=== PATIENT | male | born 1960 | race African-American/Black ===

== ENCOUNTER 2020-08-11 13:41 | Inpatient (IN) ==
[2020-08-11 14:19] LABS: Basophils # 0.1 10*3/uL (0.0-0.2); Basophils % 0.4 % (0.0-0.8); Eosinophils % 0.2 % (0.00-10.9); Hematocrit 34.6 VOL% (42.0-52.0); Hemoglobin 11.8 GM/DL (14.0-18.0); Immature Granulocytes % 9.7 %; Immature Granulocytes Absolute 1.11 #; Lymphocytes # 0.9 10*3/uL (1.4-4.0); Lymphocytes % 7.6 % (21.2-54.2); Mean Corpuscular HGB Conc 34.1 GM/DL (32-36); Mean Corpuscular Volume 93.5 FL (87-102); Mean Platelet Volume 12.5 FL (9.6-12.0); Monocytes % 24.3 % (1.7-12.7); Neutrophils % 57.8 % (38.7-73.9); Platelet Count 240 T/CUMM (130-400); Red Cell Distribution Width 13.7 % (9.3-17.3); White Blood Count 11.5 T/CUMM (4-12)
[2020-08-11] MEDS ORDERED: SODIUM CHLORIDE 0.9% 1,000 ML IV STA (14:23)
[2020-08-11 14:31] LABS: INR 1.1; PT Patient Result 12.4 SECS (10.5-12.0); Partial Thromboplastin Time 28.1 SECS (23.9-33.8)
[2020-08-11 14:39] LABS: Alanine Aminotransferase 67 U/L (16-61); Alkaline Phosphatase 90 U/L (45-117); Aspartate Amino Transferase 106 U/L (0-37); Blood Urea Nitrogen 19 MG/DL (7-18); Calcium 8.9 MG/DL (8.5-10.1); Carbon Dioxide 22 MMOL/L (21-32); Estimated Glom Filtration Rate 123 ML/MIN; Glucose 107 MG/DL (74-106); Osmolality,Calculated 263.7 MOS/KG (273-304); Potassium 3.3 MMOL/L (3.5-5.1); Sodium 131 MMOL/L (136-145); Total Protein 7.3 G/DL (6.4-8.2)
[2020-08-11 14:51] LABS: Lymphocytes 15 % (20-55); Reactive Lymphocytes Few; Segmented Neutrophils 65 % (50-85); Total Cells Counted 100
[2020-08-11 14:53] LABS: Anisocytosis Slight
[2020-08-11 14:54] LABS: Platelet Estimate Adequate
[2020-08-11] MEDS ORDERED: ACETAMINOPHEN 325 MG TABLET PO PRN (15:41)
[2020-08-11] MEDS ORDERED: ONDANSETRON 4 MG/2 ML VIAL IV PRN (15:41)
[2020-08-11] MEDS ORDERED: DEXTROSE 50% 25 GM/50 ML VIAL IV PRN (15:41)
[2020-08-11] MEDS ORDERED: DOCUSATE SODIUM 100 MG CAPSULE PO PRN (15:41)
[2020-08-11] MEDS ORDERED: GLUCAGON 1 MG VIAL IM PRN (15:41)
[2020-08-11] MEDS ORDERED: POTASSIUM CHLORIDE 20 MEQ TABLET PO ONE (15:48)
[2020-08-11 15:53] LABS: Bacteria,Urine Occasional /HPF (Few); Bilirubin,Urine Negative (Negative); Blood, Urine Negative (Negative); Glucose,Urine (UA) Negative (Negative); Hyaline Casts,Urine 63 /LPF (0-3); Ketones,Urine 5 mg/dL (Negative); Mucus,Urine Occasional /LPF (Occasional); Nitrite,Urine Negative (Negative); Protein,Urine 30 MG/DL; RBC,Urine 3 /HPF (0-4); Squamous Epithelial Cell,Urine Occasional /HPF (0-10); Urine Appearance CLEAR (Clear); Urine Color Amber (Yellow); Urine Specific Gravity 1.015 (1.001-1.035)
[2020-08-11 15:58] LABS: Barbiturates Screen,Urine Negative (Negative); Benzodiazepines Screen,Urine Negative (Negative); Cannabinoid Screen,Urine Negative (Negative); Opiate Screen,Urine Negative (Negative); Phencyclidine Screen,Urine Negative (Negative)
[2020-08-11] MEDS: ASPIRIN EC 325 MG TABLET PO SCH (16:48)
[2020-08-11] MEDS: ENOXAPARIN 40 MG/0.4 ML SYRINGE SUBCUT SCH (16:50)
[2020-08-11] MEDS: FOLIC ACID 1 MG TABLET PO SCH (20:21)
[2020-08-11] MEDS: chlordiazePOXIDE 10 MG CAPSULE PO SCH (20:21)
[2020-08-12 04:59] LABS: Basophils # 0.1 10*3/uL (0.0-0.2); Basophils % 0.6 % (0.0-0.8); Eosinophils % 0.4 % (0.00-10.9); Hematocrit 34.2 VOL% (42.0-52.0); Hemoglobin 11.8 GM/DL (14.0-18.0); Immature Granulocytes % 9.6 %; Immature Granulocytes Absolute 1.02 #; Lymphocytes # 0.9 10*3/uL (1.4-4.0); Lymphocytes % 8.4 % (21.2-54.2); Mean Corpuscular HGB Conc 34.5 GM/DL (32-36); Mean Corpuscular Volume 94.2 FL (87-102); Mean Platelet Volume 12.6 FL (9.6-12.0); Monocytes % 21.5 % (1.7-12.7); Neutrophils % 59.5 % (38.7-73.9); Platelet Count 240 T/CUMM (130-400); Red Blood Count 3.63 MC/CUMM (3.8-5.5); Red Cell Distribution Width 13.7 % (9.3-17.3); White Blood Count 10.6 T/CUMM (4-12)
[2020-08-12 05:33] LABS: Atypical Lymphocytes Few; Band Neutrophils 1 % (0-10); Eosinophils 1 % (0-10); Lymphocytes 6 % (20-55); Metamyelocytes 1 %; Segmented Neutrophils 71 % (50-85); Total Cells Counted 100
[2020-08-12 05:35] LABS: Hypochromasia Slight
[2020-08-12 05:36] LABS: Giant Platelets Few; Microcytosis Slight; Platelet Estimate Normal
[2020-08-12 05:38] LABS: Calcium 8.2 MG/DL (8.5-10.1); Osmolality,Calculated 268.2 MOS/KG (273-304); Potassium 3.4 MMOL/L (3.5-5.1); Risk Ratio 7.87; Thyroid Stimulating Hormone 1.71 uIU/ml (0.358-3.74); VLDL CHOLESTEROL 27.2 MG/DL
[2020-08-12] MEDS ORDERED: MAGNESIUM SULF RIDER 4 GM/100 ML PREMIX IV PRN (07:15)
[2020-08-12] MEDS ORDERED: MAGNESIUM SULF RIDER 2 GM/50 ML PREMIX IV PRN (07:15)
[2020-08-12] MEDS: THIAMINE 100 MG TABLET PO SCH (08:36)
[2020-08-12] MEDS: ASPIRIN EC 325 MG TABLET PO SCH (08:36)
[2020-08-12] MEDS: chlordiazePOXIDE 10 MG CAPSULE PO SCH ×3 (08:36→20:48)
[2020-08-12] MEDS: POTASSIUM CHLORIDE 20 MEQ TABLET PO PRN (08:36)
[2020-08-12] MEDS ORDERED: POTASSIUM CHLORIDE 20 MEQ TABLET PO ONE (09:46)
[2020-08-12] MEDS: ENOXAPARIN 40 MG/0.4 ML SYRINGE SUBCUT SCH (17:15)
[2020-08-12] MEDS: FOLIC ACID 1 MG TABLET PO SCH (20:48)
[2020-08-12] MEDS: ATORVASTATIN 40 MG TABLET PO SCH (20:48)
[2020-08-13] MEDS ORDERED: PHENYLEPHRINE DRIP 20 MG/250 ML PREMIX IV ONE (07:25)
[2020-08-13] MEDS ORDERED: NITROGLYCERIN DRIP 50 MG/250 ML BOTTLE IV ONE (07:25)
[2020-08-13] MEDS ORDERED: LIDOCAINE 1% 20 ML VIAL ONE (07:55)
[2020-08-13] MEDS ORDERED: HEPARIN 5,000 UNIT/1 ML VIAL ONE (07:55)
[2020-08-13] MEDS: ASPIRIN EC 325 MG TABLET PO SCH (07:59)
[2020-08-13] MEDS: THIAMINE 100 MG TABLET PO SCH (07:59)
[2020-08-13] MEDS: chlordiazePOXIDE 10 MG CAPSULE PO SCH ×3 (07:59→21:12)
[2020-08-13] MEDS ORDERED: MIDAZOLAM 2 MG/2 ML VIAL ONE (08:03)
[2020-08-13] MEDS ORDERED: fentaNYL 100 MCG/2 ML VIAL ONE (08:03)
[2020-08-13] MEDS ORDERED: LIDOCAINE 2% 5 ML VIAL ONE (09:36)
[2020-08-13] MEDS ORDERED: SEVOFLURANE 1 UNIT/15 MINUTE INH ONE ×4 (09:36→11:15)
[2020-08-13] MEDS ORDERED: propofoL 200 MG/20 ML VIAL IV ONE (09:36)
[2020-08-13] MEDS ORDERED: ROCURONIUM 50 MG/5 ML VIAL IV ONE ×3 (09:36→10:54)
[2020-08-13] MEDS ORDERED: HEPARIN 10,000 UNIT/10 ML VIAL ONE (10:31)
[2020-08-13] MEDS ORDERED: PROTAMINE SULFATE 50 MG/5 ML VIAL IV ONE (10:31)
[2020-08-13] MEDS ORDERED: NEOSTIGMINE 10 MG/10 ML VIAL ONE (10:36)
[2020-08-13] MEDS ORDERED: GLYCOPYRROLATE 0.4 MG/2 ML VIAL ONE (10:36)
[2020-08-13] MEDS ORDERED: GLUCAGON 1 MG VIAL IM PRN (10:43)
[2020-08-13] MEDS ORDERED: oxyCODONE/ACETAMINOPHEN 5-325 MG TABLET PO PRN ×2 (10:43)
[2020-08-13] MEDS ORDERED: NALOXONE 0.4 MG/ML VIAL IV PRN (10:43)
[2020-08-13] MEDS ORDERED: ONDANSETRON 4 MG/2 ML VIAL IV PRN (10:43)
[2020-08-13] MEDS ORDERED: DEXTROSE 50% 25 GM/50 ML VIAL IV PRN (10:43)
[2020-08-13] MEDS ORDERED: PROMETHAZINE 25 MG/1 ML VIAL IM PRN (10:43)
[2020-08-13] MEDS ORDERED: HYDROmorphone 2 MG/1 ML VIAL IV PRN (10:43)
[2020-08-13] MEDS ORDERED: NITROPRUSSIDE 100 MG in DEXTROSE 5% 250 ML IV SCH ×2 (11:00→13:30)
[2020-08-13] MEDS: INSULIN REGULAR 100 UNIT/ML SUBCUT SCH ×3 (12:51→20:46)
[2020-08-13] MEDS: amLODIPine 5 MG TABLET PO SCH (13:32)
[2020-08-13] MEDS: LACTATED RINGERS 1,000 ML IV SCH ×3 (13:41→23:20)
[2020-08-13] MEDS: PHENYLEPHRINE DRIP 40 MG/250 ML PREMIX IV SCH (13:43)
[2020-08-13] MEDS: ATORVASTATIN 40 MG TABLET PO SCH (21:12)
[2020-08-13] MEDS: FOLIC ACID 1 MG TABLET PO SCH (21:12)
[2020-08-14 04:08] LABS: Basophils % 0.3 % (0.0-0.8); Eosinophils % 0.1 % (0.00-10.9); Immature Granulocytes Absolute 0.73 #; Lymphocytes # 0.8 10*3/uL (1.4-4.0); Lymphocytes % 7.6 % (21.2-54.2); Mean Corpuscular HGB Conc 33.3 GM/DL (32-36); Mean Corpuscular Volume 95.8 FL (87-102); Mean Platelet Volume 12.3 FL (9.6-12.0); Platelet Count 254 T/CUMM (130-400); Red Blood Count 3.13 MC/CUMM (3.8-5.5); Red Cell Distribution Width 14.2 % (9.3-17.3); White Blood Count 10.4 T/CUMM (4-12)
[2020-08-14 04:20] LABS: Albumin 2.3 G/DL (3.4-5.0); Bilirubin,Total 1.4 MG/DL (0.2-1.0); Calcium 7.9 MG/DL (8.5-10.1); Potassium 3.7 MMOL/L (3.5-5.1); Total Protein 6.1 G/DL (6.4-8.2)
[2020-08-14 04:48] LABS: Band Neutrophils 1 % (0-10); Hypochromasia 1+; Lymphocytes 6 % (20-55); Metamyelocytes 1 %; Segmented Neutrophils 68 % (50-85); Total Cells Counted 100
[2020-08-14 04:49] LABS: Microcytosis Slight
[2020-08-14 04:50] LABS: Atypical Lymphocytes Few; Platelet Estimate Normal
[2020-08-14] MEDS: POTASSIUM CHLORIDE 20 MEQ TABLET PO PRN (06:28)
[2020-08-14] MEDS: LACTATED RINGERS 1,000 ML IV SCH (06:52)
[2020-08-14] MEDS: CLOPIDOGREL 75 MG TABLET PO SCH (08:29)
[2020-08-14] MEDS: ASPIRIN EC 81 MG TABLET PO SCH (08:29)
[2020-08-14] MEDS: THIAMINE 100 MG TABLET PO SCH (08:29)
[2020-08-14] MEDS: chlordiazePOXIDE 10 MG CAPSULE PO SCH ×3 (08:29→20:40)
[2020-08-14] MEDS: amLODIPine 5 MG TABLET PO SCH ×2 (08:29→10:31)
[2020-08-14] MEDS: INSULIN REGULAR 100 UNIT/ML SUBCUT SCH ×4 (08:30→20:41)
[2020-08-14] MEDS: PHENYLEPHRINE DRIP 40 MG/250 ML PREMIX IV SCH (10:19)
[2020-08-14] MEDS: ATORVASTATIN 40 MG TABLET PO SCH (20:40)
[2020-08-14] MEDS: FOLIC ACID 1 MG TABLET PO SCH (20:40)
[2020-08-14] MEDS: HYDROmorphone 2 MG/1 ML VIAL IV PRN (23:27)
[2020-08-15 05:25] LABS: Basophils # 0.1 10*3/uL (0.0-0.2); Basophils % 0.5 % (0.0-0.8); Eosinophils # 0.1 10*3/uL (0.0-0.87); Eosinophils % 0.7 % (0.00-10.9); Hematocrit 33.3 VOL% (42.0-52.0); Hemoglobin 11.4 GM/DL (14.0-18.0); Immature Granulocytes % 4.8 %; Immature Granulocytes Absolute 0.47 #; Lymphocytes # 0.9 10*3/uL (1.4-4.0); Lymphocytes % 9.3 % (21.2-54.2); Mean Corpuscular HGB Conc 34.2 GM/DL (32-36); Mean Corpuscular Volume 94.6 FL (87-102); Monocytes % 25.2 % (1.7-12.7); Neutrophils % 59.5 % (38.7-73.9); Platelet Count 297 T/CUMM (130-400); Red Blood Count 3.52 MC/CUMM (3.8-5.5); Red Cell Distribution Width 13.9 % (9.3-17.3); White Blood Count 9.8 T/CUMM (4-12)
[2020-08-15 05:53] LABS: Albumin 2.6 G/DL (3.4-5.0); Bilirubin,Total 1.4 MG/DL (0.2-1.0); Calcium 8.8 MG/DL (8.5-10.1); Osmolality,Calculated 260.5 MOS/KG (273-304); Potassium 3.8 MMOL/L (3.5-5.1)
[2020-08-15 06:09] LABS: Eosinophils 1 % (0-10); Lymphocytes 9 % (20-55); Platelet Estimate Normal; Segmented Neutrophils 73 % (50-85); Total Cells Counted 100
[2020-08-15] MEDS: INSULIN REGULAR 100 UNIT/ML SUBCUT SCH ×4 (08:24→20:07)
[2020-08-15] MEDS: chlordiazePOXIDE 10 MG CAPSULE PO SCH ×3 (09:32→20:07)
[2020-08-15] MEDS: THIAMINE 100 MG TABLET PO SCH (09:32)
[2020-08-15] MEDS: ASPIRIN EC 81 MG TABLET PO SCH (09:32)
[2020-08-15] MEDS: CLOPIDOGREL 75 MG TABLET PO SCH (09:33)
[2020-08-15] MEDS: amLODIPine 5 MG TABLET PO SCH (09:33)
[2020-08-15] MEDS ORDERED: LOSARTAN 25 MG TABLET PO SCH (11:00)
[2020-08-15 11:34] LABS: % Iron Saturation 15.1 % (18-50); Ferritin 499.8 ng/ml (26-388)
[2020-08-15 11:43] LABS: Folate 8.76 NG/ML (5.38-24.0)
[2020-08-15] MEDS: FOLIC ACID 1 MG TABLET PO SCH (20:07)
[2020-08-15] MEDS: ATORVASTATIN 40 MG TABLET PO SCH (20:07)
[2020-08-15] MEDS: HYDROmorphone 2 MG/1 ML VIAL IV PRN (23:14)
[2020-08-16] MEDS: INSULIN REGULAR 100 UNIT/ML SUBCUT SCH ×3 (08:04→17:40)
[2020-08-16 08:41] LABS: Basophils # 0.1 10*3/uL (0.0-0.2); Basophils % 0.5 % (0.0-0.8); Eosinophils # 0.1 10*3/uL (0.0-0.87); Eosinophils % 0.5 % (0.00-10.9); Hematocrit 36.2 VOL% (42.0-52.0); Hemoglobin 12.2 GM/DL (14.0-18.0); Immature Granulocytes % 1.8 %; Immature Granulocytes Absolute 0.24 #; Lymphocytes # 0.9 10*3/uL (1.4-4.0); Lymphocytes % 6.5 % (21.2-54.2); Mean Corpuscular HGB Conc 33.7 GM/DL (32-36); Mean Corpuscular Volume 95.3 FL (87-102); Mean Platelet Volume 11.7 FL (9.6-12.0); Monocytes % 17.9 % (1.7-12.7); Neutrophils % 72.8 % (38.7-73.9); Platelet Count 403 T/CUMM (130-400); Red Cell Distribution Width 14.3 % (9.3-17.3)
[2020-08-16 08:57] LABS: Calcium 9.2 MG/DL (8.5-10.1); Osmolality,Calculated 263.4 MOS/KG (273-304); Potassium 3.5 MMOL/L (3.5-5.1)
[2020-08-16 08:59] LABS: Hypochromasia 1+; Lymphocytes 9 % (20-55); Microcytosis 1+; Platelet Estimate Adequate; Segmented Neutrophils 74 % (50-85); Total Cells Counted 100
[2020-08-16] MEDS ORDERED: LOSARTAN 25 MG TABLET PO SCH (09:00)
[2020-08-16] MEDS: ASPIRIN EC 81 MG TABLET PO SCH (09:37)
[2020-08-16] MEDS: THIAMINE 100 MG TABLET PO SCH (09:37)
[2020-08-16] MEDS: CLOPIDOGREL 75 MG TABLET PO SCH (09:38)
[2020-08-16] MEDS: amLODIPine 5 MG TABLET PO SCH (09:38)
[2020-08-16] MEDS: chlordiazePOXIDE 10 MG CAPSULE PO SCH ×2 (09:38→15:14)
[2020-08-16] MEDS ORDERED: MAGNESIUM SULF RIDER 2 GM/50 ML PREMIX IV ONE (14:33)
[2020-08-16 16:32] VITALS: BP 111/68
[2020-08-16 17:46] LABS: Bacteria,Urine Occasional /HPF (Few); Bilirubin,Urine Negative (Negative); Blood, Urine Negative (Negative); Glucose,Urine (UA) Negative (Negative); Hyaline Casts,Urine 8 /LPF (0-3); Ketones,Urine Negative (Negative); Mucus,Urine Occasional /LPF (Occasional); Nitrite,Urine Negative (Negative); Protein,Urine Negative; RBC,Urine 3 /HPF (0-4); Squamous Epithelial Cell,Urine Occasional /HPF (0-10); Urine Appearance Slightly Hazy (Clear); Urine Color Amber (Yellow); Urine Specific Gravity 1.017 (1.001-1.035)
== END 2020-08-16 18:00 | disposition home or self-care (01) | DRG 38 ==
LOC: EDBD → EDUNIT# → N.TELEN 13:41 → N.ED 13:41 → N.EDINP 13:41 → N.TELEN 17:46 → SUATTDRO 08-13 10:30 → N.CC 08-13 10:34 → N.ICU 08-13 11:52 → N.TELEN 08-14 13:54
PROVIDERS: ADMIT Hospitalist; ATTEND Internal Medicine

== ENCOUNTER 2021-01-08 10:39 | Inpatient (IN) ==
[2021-01-08] MEDS ORDERED: LABETALOL 20 MG/4 ML SYRINGE IV STA (10:58)
[2021-01-08 11:22] LABS: Basophils # 0.1 10*3/uL (0.0-0.2); Basophils % 0.6 % (0.0-0.8); Eosinophils # 0.2 10*3/uL (0.0-0.87); Eosinophils % 1.9 % (0.00-10.9); Hematocrit 32.1 VOL% (42.0-52.0); Hemoglobin 9.9 GM/DL (14.0-18.0); Immature Granulocytes Absolute 0.08 #; Lymphocytes # 2.1 10*3/uL (1.4-4.0); Lymphocytes % 26.8 % (21.2-54.2); Mean Corpuscular HGB Conc 30.8 GM/DL (32-36); Mean Corpuscular Volume 97.6 FL (87-102); Mean Platelet Volume 10.5 FL (9.6-12.0); Monocytes % 14.2 % (1.7-12.7); Neutrophils % 55.5 % (38.7-73.9); Platelet Count 426 T/CUMM (130-400); Red Blood Count 3.29 MC/CUMM (3.8-5.5); Red Cell Distribution Width 16.1 % (9.3-17.3); White Blood Count 7.9 T/CUMM (4-12)
[2021-01-08 11:58] LABS: Alanine Aminotransferase 23 U/L (16-61); Albumin 2.9 G/DL (3.4-5.0); Alkaline Phosphatase 158 U/L (45-117); Aspartate Amino Transferase 29 U/L (0-37); Blood Urea Nitrogen 8 MG/DL (7-18); Carbon Dioxide 28 MMOL/L (21-32); Estimated Glom Filtration Rate 114 ML/MIN; Glucose 91 MG/DL (74-106); Osmolality,Calculated 278.3 MOS/KG (273-304); Potassium 3.5 MMOL/L (3.5-5.1); Sodium 141 MMOL/L (136-145); Total Protein 8.9 G/DL (6.4-8.2)
[2021-01-08 12:44] LABS: INR 1.2; PT Patient Result 13.3 SECS (10.5-12.0); Partial Thromboplastin Time 34.5 SECS (23.8-32.1)
[2021-01-08] MEDS ORDERED: LORazepam 2 MG/1 ML VIAL IV PRN (14:40)
[2021-01-08] MEDS ORDERED: hydrALAZINE 20 MG/1 ML VIAL IV PRN (14:41)
[2021-01-08] MEDS ORDERED: ACETAMINOPHEN 325 MG TABLET PO PRN (14:41)
[2021-01-08] MEDS ORDERED: GLUCAGON 1 MG VIAL IM PRN (14:41)
[2021-01-08] MEDS ORDERED: ONDANSETRON 4 MG/2 ML VIAL IV PRN (14:41)
[2021-01-08] MEDS ORDERED: DEXTROSE 50% 25 GM/50 ML VIAL IV PRN (14:41)
[2021-01-08] MEDS ORDERED: chlordiazePOXIDE 25 MG CAPSULE PO SCH (15:00)
[2021-01-08 15:19] LABS: Risk Ratio 3.38; Thyroid Stimulating Hormone 1.16 uIU/ml (0.358-3.74); VLDL Cholesterol 16.6 MG/DL
[2021-01-08] MEDS: NICOTINE 21 MG/24 HR PATCH TRANSDERM SCH (18:04)
[2021-01-08] MEDS: ENOXAPARIN 40 MG/0.4 ML SYRINGE SUBCUT SCH (18:04)
[2021-01-08] MEDS: SODIUM CHLOR 0.45% KCL 20 MEQ 20 MEQ/1,000 ML BAG IV SCH (18:04)
[2021-01-08] MEDS: chlordiazePOXIDE 25 MG CAPSULE PO SCH (21:46)
[2021-01-08] MEDS: ATORVASTATIN 40 MG TABLET PO SCH (21:46)
[2021-01-09 02:51] LABS: Bacteria,Urine Many /HPF (Few); Bilirubin,Urine Negative (Negative); Blood, Urine Negative (Negative); Glucose,Urine (UA) Negative (Negative); Ketones,Urine Negative (Negative); Mucus,Urine Occasional /LPF (Occasional); Nitrite,Urine Negative (Negative); Protein,Urine Negative; RBC,Urine 1 /HPF (0-4); Squamous Epithelial Cell,Urine Occasional /HPF (0-10); Urine Appearance CLEAR (Clear); Urine Color Yellow (Yellow); Urine Specific Gravity 1.009 (1.001-1.035); Urine Urobilinogen < 2.0 EU/DL (0.2-1.0)
[2021-01-09] MEDS: SODIUM CHLOR 0.45% KCL 20 MEQ 20 MEQ/1,000 ML BAG IV SCH ×2 (04:03→17:04)
[2021-01-09 05:49] LABS: Basophils # 0.1 10*3/uL (0.0-0.2); Basophils % 0.9 % (0.0-0.8); Eosinophils # 0.2 10*3/uL (0.0-0.87); Eosinophils % 3.3 % (0.00-10.9); Hematocrit 27.1 VOL% (42.0-52.0); Hemoglobin 8.7 GM/DL (14.0-18.0); Immature Granulocytes % 0.7 %; Immature Granulocytes Absolute 0.04 #; Lymphocytes # 1.9 10*3/uL (1.4-4.0); Lymphocytes % 32.3 % (21.2-54.2); Mean Corpuscular HGB Conc 32.1 GM/DL (32-36); Mean Corpuscular Volume 96.8 FL (87-102); Mean Platelet Volume 10.8 FL (9.6-12.0); Monocytes % 15.6 % (1.7-12.7); Neutrophils % 47.2 % (38.7-73.9); Platelet Count 392 T/CUMM (130-400); Red Cell Distribution Width 16.1 % (9.3-17.3); White Blood Count 5.7 T/CUMM (4-12)
[2021-01-09 06:03] LABS: Barbiturates Screen,Urine Negative (Negative); Benzodiazepines Screen,Urine Negative (Negative); Cannabinoid Screen,Urine Negative (Negative); Opiate Screen,Urine Negative (Negative); Phencyclidine Screen,Urine Negative (Negative)
[2021-01-09 06:10] LABS: Albumin 2.4 G/DL (3.4-5.0); Calcium 8.6 MG/DL (8.5-10.1); Osmolality,Calculated 275.4 MOS/KG (273-304); Potassium 3.2 MMOL/L (3.5-5.1); Total Protein 7.6 G/DL (6.4-8.2)
[2021-01-09 06:51] LABS: Band Neutrophils 1 % (0-10); Eosinophils 5 % (0-10); Lymphocytes 34 % (20-55); Segmented Neutrophils 47 % (50-85); Total Cells Counted 100
[2021-01-09 06:52] LABS: Hypochromasia 1+; Platelet Estimate Increased
[2021-01-09] MEDS: chlordiazePOXIDE 25 MG CAPSULE PO SCH ×2 (08:33→21:29)
[2021-01-09] MEDS: amLODIPine 5 MG TABLET PO SCH (08:34)
[2021-01-09] MEDS: LOSARTAN 25 MG TABLET PO SCH (08:34)
[2021-01-09] MEDS: THIAMINE 100 MG TABLET PO SCH (08:35)
[2021-01-09] MEDS: CLOPIDOGREL 75 MG TABLET PO SCH (08:35)
[2021-01-09] MEDS: PANTOPRAZOLE 40 MG TABLET PO SCH (08:35)
[2021-01-09] MEDS: ASPIRIN EC 81 MG TABLET PO SCH (08:35)
[2021-01-09] MEDS: FOLIC ACID 1 MG TABLET PO SCH (08:36)
[2021-01-09] MEDS: NICOTINE 21 MG/24 HR PATCH TRANSDERM SCH (08:36)
[2021-01-09] MEDS: POTASSIUM CHLORIDE RIDER 10 MEQ/100 ML PREMIX IV SCH ×2 (08:37→12:06)
[2021-01-09] MEDS: ENOXAPARIN 40 MG/0.4 ML SYRINGE SUBCUT SCH (14:19)
[2021-01-09] MEDS: ATORVASTATIN 40 MG TABLET PO SCH (21:29)
[2021-01-10] MEDS: SODIUM CHLOR 0.45% KCL 20 MEQ 20 MEQ/1,000 ML BAG IV SCH ×2 (02:15→12:31)
[2021-01-10] MEDS: chlordiazePOXIDE 25 MG CAPSULE PO SCH (04:44)
[2021-01-10 05:54] LABS: Basophils % 0.5 % (0.0-0.8); Eosinophils # 0.3 10*3/uL (0.0-0.87); Eosinophils % 5.9 % (0.00-10.9); Hematocrit 28.9 VOL% (42.0-52.0); Hemoglobin 8.9 GM/DL (14.0-18.0); Immature Granulocytes % 0.5 %; Immature Granulocytes Absolute 0.03 #; Lymphocytes # 1.9 10*3/uL (1.4-4.0); Lymphocytes % 34.8 % (21.2-54.2); Mean Corpuscular HGB Conc 30.8 GM/DL (32-36); Mean Corpuscular Volume 97.3 FL (87-102); Mean Platelet Volume 10.5 FL (9.6-12.0); Monocytes % 15.8 % (1.7-12.7); Neutrophils % 42.5 % (38.7-73.9); Platelet Count 359 T/CUMM (130-400); Red Blood Count 2.97 MC/CUMM (3.8-5.5); Red Cell Distribution Width 16.1 % (9.3-17.3); White Blood Count 5.5 T/CUMM (4-12)
[2021-01-10 06:38] LABS: Albumin 2.5 G/DL (3.4-5.0); Bilirubin,Total 1.2 MG/DL (0.20-1.00); Calcium 9.1 MG/DL (8.5-10.1); Osmolality,Calculated 279.1 MOS/KG (273-304); Potassium 3.8 MMOL/L (3.5-5.1)
[2021-01-10 06:39] LABS: Anisocytosis 2+; Band Neutrophils 1 % (0-10); Eosinophils 6 % (0-10); Lymphocytes 36 % (20-55); Macrocytosis 1+; Platelet Estimate Normal; Segmented Neutrophils 46 % (50-85); Total Cells Counted 100
[2021-01-10 06:40] LABS: Polychromasia Slight; Tear Drop Cells Few
[2021-01-10] MEDS: ASPIRIN EC 81 MG TABLET PO SCH (08:18)
[2021-01-10] MEDS: THIAMINE 100 MG TABLET PO SCH (08:18)
[2021-01-10] MEDS: PANTOPRAZOLE 40 MG TABLET PO SCH (08:18)
[2021-01-10] MEDS: amLODIPine 5 MG TABLET PO SCH (08:18)
[2021-01-10] MEDS: LOSARTAN 25 MG TABLET PO SCH (08:18)
[2021-01-10] MEDS: FOLIC ACID 1 MG TABLET PO SCH (08:19)
[2021-01-10] MEDS: NICOTINE 21 MG/24 HR PATCH TRANSDERM SCH (08:19)
[2021-01-10] MEDS: CLOPIDOGREL 75 MG TABLET PO SCH (08:19)
[2021-01-10 16:16] LABS: ABG Base Excess -1.7 MMOL/L (-2.5-2.5); ABG HCO3 21.8 MMOL/L (20-26); ABG Oxygen Saturation 96.9 % (95-100); ABG PCO2 32.5 MM HG (35-48); ABG PH 7.445 (7.35-7.45); ABG PO2 91.2 MM HG (80-95); ABG TCO2 22.8 MMOL/L (23-27); Pt O2 Delivery Device Room Air
[2021-01-10 16:24] LABS: Barbiturates Screen,Urine Negative (Negative); Benzodiazepines Screen,Urine Positive (Negative); Cannabinoid Screen,Urine Negative (Negative); Opiate Screen,Urine Negative (Negative); Phencyclidine Screen,Urine Negative (Negative)
[2021-01-10] MEDS: cefTRIAXone 1,000 MG in SODIUM CHLORIDE 0.9% 100 ML IV SCH (17:25)
[2021-01-10] MEDS: ENOXAPARIN 40 MG/0.4 ML SYRINGE SUBCUT SCH (17:25)
[2021-01-10 17:47] LABS: Bacteria,Urine Moderate /HPF (Few); Bilirubin,Urine Negative (Negative); Blood, Urine Small mg/dL (Negative); Glucose,Urine (UA) Negative (Negative); Hyaline Casts,Urine 15 /LPF (0-3); Ketones,Urine Negative (Negative); Mucus,Urine Occasional /LPF (Occasional); Nitrite,Urine Positive (Negative); Protein,Urine 100 MG/DL; RBC,Urine 3 /HPF (0-4); Squamous Epithelial Cell,Urine Occasional /HPF (0-10); Urine Appearance Slightly Hazy (Clear); Urine Color Yellow (Yellow); Urine Specific Gravity 1.006 (1.001-1.035); Urine Urobilinogen < 2.0 EU/DL (0.2-1.0)
[2021-01-10] MEDS: DIAZEPAM 2 MG TABLET PO SCH ×2 (18:32→21:20)
[2021-01-10] MEDS: ATORVASTATIN 40 MG TABLET PO SCH (20:41)
[2021-01-11] MEDS: SODIUM CHLOR 0.45% KCL 20 MEQ 20 MEQ/1,000 ML BAG IV SCH ×3 (01:00→20:24)
[2021-01-11 06:40] LABS: Basophils % 0.4 % (0.0-0.8); Eosinophils # 0.2 10*3/uL (0.0-0.87); Eosinophils % 2.3 % (0.00-10.9); Hematocrit 31.3 VOL% (42.0-52.0); Hemoglobin 9.7 GM/DL (14.0-18.0); Immature Granulocytes % 0.5 %; Immature Granulocytes Absolute 0.04 #; Lymphocytes # 1.6 10*3/uL (1.4-4.0); Lymphocytes % 20.6 % (21.2-54.2); Mean Corpuscular Volume 96.9 FL (87-102); Mean Platelet Volume 10.6 FL (9.6-12.0); Monocytes % 11.7 % (1.7-12.7); Neutrophils % 64.5 % (38.7-73.9); Platelet Count 404 T/CUMM (130-400); Red Blood Count 3.23 MC/CUMM (3.8-5.5); Red Cell Distribution Width 16.2 % (9.3-17.3); White Blood Count 7.7 T/CUMM (4-12)
[2021-01-11 07:04] LABS: Albumin 2.8 G/DL (3.4-5.0); Bilirubin,Total 0.9 MG/DL (0.20-1.00); Calcium 9.2 MG/DL (8.5-10.1); Osmolality,Calculated 274.5 MOS/KG (273-304); Total Protein 8.6 G/DL (6.4-8.2)
[2021-01-11] MEDS: FOLIC ACID 1 MG TABLET PO SCH (08:12)
[2021-01-11] MEDS: cefTRIAXone 1,000 MG in SODIUM CHLORIDE 0.9% 100 ML IV SCH (08:12)
[2021-01-11] MEDS: DIAZEPAM 2 MG TABLET PO SCH ×3 (08:12→20:24)
[2021-01-11] MEDS: THIAMINE 100 MG TABLET PO SCH (08:13)
[2021-01-11] MEDS: ASPIRIN CHEW 81 MG TABLET PO SCH (08:13)
[2021-01-11] MEDS: CLOPIDOGREL 75 MG TABLET PO SCH (08:13)
[2021-01-11] MEDS: amLODIPine 5 MG TABLET PO SCH (08:13)
[2021-01-11] MEDS: LOSARTAN 25 MG TABLET PO SCH (08:13)
[2021-01-11] MEDS: NICOTINE 21 MG/24 HR PATCH TRANSDERM SCH (08:14)
[2021-01-11] MEDS ORDERED: PANTOPRAZOLE 40 MG VIAL IV SCH (09:00)
[2021-01-11] MEDS: APIXABAN 5 MG TABLET PO SCH ×2 (12:18→20:24)
[2021-01-11] MEDS: ATORVASTATIN 40 MG TABLET PO SCH (20:24)
[2021-01-12 05:37] LABS: Basophils % 0.6 % (0.0-0.8); Eosinophils # 0.3 10*3/uL (0.0-0.87); Eosinophils % 3.5 % (0.00-10.9); Hematocrit 32.4 VOL% (42.0-52.0); Immature Granulocytes % 0.4 %; Immature Granulocytes Absolute 0.03 #; Lymphocytes # 1.4 10*3/uL (1.4-4.0); Lymphocytes % 20.1 % (21.2-54.2); Mean Corpuscular HGB Conc 30.9 GM/DL (32-36); Mean Corpuscular Volume 96.7 FL (87-102); Mean Platelet Volume 10.3 FL (9.6-12.0); Monocytes % 12.5 % (1.7-12.7); Neutrophils % 62.9 % (38.7-73.9); Platelet Count 397 T/CUMM (130-400); Red Blood Count 3.35 MC/CUMM (3.8-5.5); Red Cell Distribution Width 16.1 % (9.3-17.3); White Blood Count 7.1 T/CUMM (4-12)
[2021-01-12 06:01] LABS: Albumin 2.8 G/DL (3.4-5.0); Bilirubin,Total 2.1 MG/DL (0.20-1.00); Calcium 9.3 MG/DL (8.5-10.1); Potassium 4.1 MMOL/L (3.5-5.1); Total Protein 8.7 G/DL (6.4-8.2)
[2021-01-12] MEDS: SODIUM CHLOR 0.45% KCL 20 MEQ 20 MEQ/1,000 ML BAG IV SCH (06:05)
[2021-01-12] MEDS ORDERED: MAGNESIUM SULF RIDER 2 GM/50 ML PREMIX IV ONE (08:01)
[2021-01-12] MEDS: DIAZEPAM 2 MG TABLET PO SCH ×3 (08:47→21:44)
[2021-01-12] MEDS: cefTRIAXone 1,000 MG in SODIUM CHLORIDE 0.9% 100 ML IV SCH (08:47)
[2021-01-12] MEDS: LOSARTAN 25 MG TABLET PO SCH (08:48)
[2021-01-12] MEDS: FOLIC ACID 1 MG TABLET PO SCH (08:48)
[2021-01-12] MEDS: PANTOPRAZOLE 40 MG TABLET PO SCH (08:48)
[2021-01-12] MEDS: THIAMINE 100 MG TABLET PO SCH (08:48)
[2021-01-12] MEDS: APIXABAN 5 MG TABLET PO SCH ×2 (08:48→21:43)
[2021-01-12] MEDS: NICOTINE 21 MG/24 HR PATCH TRANSDERM SCH (08:48)
[2021-01-12] MEDS: amLODIPine 5 MG TABLET PO SCH (08:49)
[2021-01-12] MEDS: ASPIRIN CHEW 81 MG TABLET PO SCH (08:49)
[2021-01-12] MEDS: ATORVASTATIN 40 MG TABLET PO SCH (21:43)
[2021-01-13 04:59] LABS: Basophils % 0.5 % (0.0-0.8); Eosinophils # 0.2 10*3/uL (0.0-0.87); Eosinophils % 2.4 % (0.00-10.9); Hematocrit 31.5 VOL% (42.0-52.0); Hemoglobin 9.8 GM/DL (14.0-18.0); Immature Granulocytes % 1.2 %; Immature Granulocytes Absolute 0.09 #; Lymphocytes # 1.4 10*3/uL (1.4-4.0); Lymphocytes % 18.5 % (21.2-54.2); Mean Corpuscular HGB Conc 31.1 GM/DL (32-36); Mean Corpuscular Volume 97.8 FL (87-102); Mean Platelet Volume 11.1 FL (9.6-12.0); Monocytes % 16.4 % (1.7-12.7); Platelet Count 357 T/CUMM (130-400); Red Blood Count 3.22 MC/CUMM (3.8-5.5); Red Cell Distribution Width 15.9 % (9.3-17.3); White Blood Count 7.6 T/CUMM (4-12)
[2021-01-13 05:30] LABS: Eosinophils 2 % (0-10); Hypochromasia 1+; Lymphocytes 18 % (20-55); Microcytosis 1+; Platelet Estimate Adequate; Segmented Neutrophils 68 % (50-85); Total Cells Counted 100
[2021-01-13] MEDS: amLODIPine 5 MG TABLET PO SCH (09:55)
[2021-01-13] MEDS: THIAMINE 100 MG TABLET PO SCH (09:55)
[2021-01-13] MEDS: DIAZEPAM 2 MG TABLET PO SCH ×3 (09:55→22:00)
[2021-01-13] MEDS: ASPIRIN CHEW 81 MG TABLET PO SCH (09:55)
[2021-01-13] MEDS: APIXABAN 5 MG TABLET PO SCH ×2 (09:55→22:00)
[2021-01-13] MEDS: LOSARTAN 25 MG TABLET PO SCH (09:55)
[2021-01-13] MEDS: FOLIC ACID 1 MG TABLET PO SCH (09:56)
[2021-01-13] MEDS: PANTOPRAZOLE 40 MG TABLET PO SCH (09:56)
[2021-01-13] MEDS: cefTRIAXone 1,000 MG in SODIUM CHLORIDE 0.9% 100 ML IV SCH (09:57)
[2021-01-13] MEDS: NICOTINE 21 MG/24 HR PATCH TRANSDERM SCH (09:57)
[2021-01-13] MEDS: ATORVASTATIN 40 MG TABLET PO SCH (22:00)
[2021-01-14 05:17] LABS: Basophils % 0.6 % (0.0-0.8); Eosinophils # 0.4 10*3/uL (0.0-0.87); Eosinophils % 5.6 % (0.00-10.9); Hematocrit 30.2 VOL% (42.0-52.0); Hemoglobin 9.3 GM/DL (14.0-18.0); Immature Granulocytes % 0.6 %; Immature Granulocytes Absolute 0.04 #; Lymphocytes # 1.9 10*3/uL (1.4-4.0); Lymphocytes % 29.8 % (21.2-54.2); Mean Corpuscular HGB Conc 30.8 GM/DL (32-36); Mean Corpuscular Volume 96.2 FL (87-102); Mean Platelet Volume 11.1 FL (9.6-12.0); Monocytes % 18.5 % (1.7-12.7); Neutrophils % 44.9 % (38.7-73.9); Platelet Count 370 T/CUMM (130-400); Red Blood Count 3.14 MC/CUMM (3.8-5.5); Red Cell Distribution Width 15.9 % (9.3-17.3); White Blood Count 6.2 T/CUMM (4-12)
[2021-01-14 05:53] LABS: Anisocytosis 1+; Atypical Lymphocytes Few; Eosinophils 6 % (0-10); Lymphocytes 37 % (20-55); Macrocytosis 1+; Platelet Estimate Normal; Segmented Neutrophils 42 % (50-85); Tear Drop Cells Few; Total Cells Counted 100
[2021-01-14] MEDS: cefTRIAXone 1,000 MG in SODIUM CHLORIDE 0.9% 100 ML IV SCH (09:00)
[2021-01-14] MEDS: ASPIRIN CHEW 81 MG TABLET PO SCH (09:03)
[2021-01-14] MEDS: FOLIC ACID 1 MG TABLET PO SCH (09:03)
[2021-01-14] MEDS: APIXABAN 5 MG TABLET PO SCH (09:03)
[2021-01-14] MEDS: amLODIPine 5 MG TABLET PO SCH (09:03)
[2021-01-14] MEDS: THIAMINE 100 MG TABLET PO SCH (09:04)
[2021-01-14] MEDS: DIAZEPAM 2 MG TABLET PO SCH (09:04)
[2021-01-14] MEDS: LOSARTAN 25 MG TABLET PO SCH (09:04)
[2021-01-14] MEDS: PANTOPRAZOLE 40 MG TABLET PO SCH (10:48)
[2021-01-14 12:22] VITALS: BP 98/64
[2021-01-14] MEDS: NICOTINE 21 MG/24 HR PATCH TRANSDERM SCH (15:48)
== END 2021-01-14 16:00 | disposition home or self-care (01) | DRG 64 ==
LOC: N.ED 10:39 → N.3E 14:22 → SUATTDRO 14:22 → N.3E 17:01 → N.ICU 01-10 14:42 → N.5E 01-12 16:46
PROVIDERS: ADMIT Internal Medicine; ATTEND Internal Medicine

== ENCOUNTER 2021-07-22 09:39 | Inpatient (IN) ==
[2021-07-22 10:01] LABS: Basophils # 0.1 10*3/uL (0.0-0.2); Basophils % 0.9 % (0.0-0.8); Eosinophils # 0.1 10*3/uL (0.0-0.87); Eosinophils % 1.2 % (0.00-10.9); Hematocrit 47.1 VOL% (42.0-52.0); Hemoglobin 15.5 GM/DL (14.0-18.0); Immature Granulocytes % 0.6 %; Immature Granulocytes Absolute 0.04 #; Lymphocytes # 1.5 10*3/uL (1.4-4.0); Lymphocytes % 21.6 % (21.2-54.2); Mean Corpuscular HGB Conc 32.9 GM/DL (32-36); Mean Corpuscular Volume 97.7 FL (87-102); Mean Platelet Volume 11.6 FL (9.6-12.0); Monocytes # 1.1 10*3/uL (0.11-0.8); Monocytes % 15.7 % (1.7-12.7); Platelet Count 303 T/CUMM (130-400); Red Blood Count 4.82 MC/CUMM (3.8-5.5); Red Cell Distribution Width 15.2 % (9.3-17.3); White Blood Count 6.8 T/CUMM (4-12)
[2021-07-22 10:12] LABS: INR 1.2; PT Patient Result 12.6 SECS (10.5-12.0); Partial Thromboplastin Time 31.9 SECS (23.8-32.1)
[2021-07-22] MEDS ORDERED: LABETALOL 20 MG/4 ML SYRINGE IV STA (10:19)
[2021-07-22 10:20] LABS: Eosinophils 5 % (0-10); Lymphocytes 25 % (20-55); Platelet Estimate Adequate; Total Cells Counted 100
[2021-07-22 10:21] LABS: Alanine Aminotransferase 32 U/L (16-61); Albumin 3.7 G/DL (3.4-5.0); Alkaline Phosphatase 96 U/L (45-117); Aspartate Amino Transferase 25 U/L (0-37); Blood Urea Nitrogen 13 MG/DL (7-18); Calcium 9.2 MG/DL (8.5-10.1); Carbon Dioxide 24 MMOL/L (21-32); Chloride 109 MMOL/L (98-107); Glucose 91 MG/DL (74-106); Osmolality,Calculated 276.5 MOS/KG (273-304); Potassium 3.9 MMOL/L (3.5-5.1); Sodium 139 MMOL/L (136-145); Total Protein 8.8 G/DL (6.4-8.2)
[2021-07-22 10:25] LABS: Lactic Acid 2.9 MMOL/L (0.4-2.0)
[2021-07-22] MEDS ORDERED: GLUCAGON 1 MG VIAL IM PRN (11:10)
[2021-07-22] MEDS ORDERED: ALUMINUM/MAGNES/SIMETH MAX STR 30 ML UDCUP PO PRN (11:10)
[2021-07-22] MEDS ORDERED: DOCUSATE SODIUM 100 MG CAPSULE PO PRN (11:10)
[2021-07-22] MEDS ORDERED: ONDANSETRON 4 MG/2 ML VIAL IV PRN (11:10)
[2021-07-22] MEDS ORDERED: ACETAMINOPHEN 325 MG TABLET PO PRN (11:10)
[2021-07-22] MEDS ORDERED: hydrALAZINE 20 MG/1 ML VIAL IV PRN (11:10)
[2021-07-22] MEDS ORDERED: CLOPIDOGREL 75 MG TABLET PO ONE (11:14)
[2021-07-22] MEDS ORDERED: DEXTROSE 10% 250 ML BAG IV PRN (11:26)
[2021-07-22] MEDS ORDERED: LACTATED RINGERS 1,000 ML IV SCH (11:30)
[2021-07-22] MEDS ORDERED: ASPIRIN CHEW 81 MG TABLET PO SCH (11:30)
[2021-07-22 11:45] LABS: Thyroid Stimulating Hormone 1.44 uIU/ml (0.358-3.74)
[2021-07-22 11:47] LABS: Mucus,Urine Occasional /LPF (Occasional); RBC,Urine <1 /HPF (0-4); Squamous Epithelial Cell,Urine Occasional /HPF (0-10)
[2021-07-22 11:48] LABS: Bilirubin,Urine Negative (Negative); Blood, Urine Negative (Negative); Glucose,Urine (UA) Negative (Negative); Ketones,Urine Negative (Negative); Nitrite,Urine Negative (Negative); Protein,Urine Negative (Negative); Urine Appearance Clear (Clear); Urine Color Yellow (Yellow); Urine Specific Gravity 1.025 (1.001-1.035); Urine pH 5.5 (4.5-8.0)
[2021-07-22 11:58] LABS: Barbiturates Screen,Urine Negative (Negative); Benzodiazepines Screen,Urine Negative (Negative); Cannabinoid Screen,Urine Positive (Negative); Opiate Screen,Urine Negative (Negative); Phencyclidine Screen,Urine Negative (Negative)
[2021-07-22] MEDS ORDERED: ENOXAPARIN 40 MG/0.4 ML SYRINGE SUBCUT SCH (13:00)
[2021-07-22] MEDS ORDERED: DEXAMETHASONE INJ 10 MG in SODIUM CHLORIDE 0.9% 50 ML IV ONE (16:18)
[2021-07-22] MEDS ORDERED: NICOTINE 21 MG/24 HR PATCH TRANSDERM PRN (16:35)
[2021-07-22] MEDS: APIXABAN 5 MG TABLET PO SCH ×2 (17:07→20:48)
[2021-07-22] MEDS ORDERED: ROSUVASTATIN 20 MG TABLET PO SCH (21:00)
[2021-07-23 04:42] LABS: Basophils % 0.1 % (0.0-0.8); Hematocrit 43.9 VOL% (42.0-52.0); Hemoglobin 14.4 GM/DL (14.0-18.0); Immature Granulocytes % 0.4 %; Immature Granulocytes Absolute 0.04 #; Lymphocytes # 0.9 10*3/uL (1.4-4.0); Mean Corpuscular HGB Conc 32.8 GM/DL (32-36); Mean Corpuscular Volume 96.3 FL (87-102); Mean Platelet Volume 11.9 FL (9.6-12.0); Monocytes # 0.5 10*3/uL (0.11-0.8); Monocytes % 5.6 % (1.7-12.7); Neutrophils % 83.9 % (38.7-73.9); Platelet Count 308 T/CUMM (130-400); Red Blood Count 4.56 MC/CUMM (3.8-5.5); Red Cell Distribution Width 14.7 % (9.3-17.3); White Blood Count 8.9 T/CUMM (4-12)
[2021-07-23 05:12] LABS: Albumin 3.4 G/DL (3.4-5.0); Bilirubin,Total 1.2 MG/DL (0.20-1.00); Calcium 9.1 MG/DL (8.5-10.1); Osmolality,Calculated 274.8 MOS/KG (273-304); Potassium 3.9 MMOL/L (3.5-5.1); Risk Ratio 3.34; Total Protein 8.5 G/DL (6.4-8.2)
[2021-07-23] MEDS ORDERED: LORazepam 2 MG/1 ML VIAL IV PRN (08:12)
[2021-07-23] MEDS ORDERED: DEXAMETHASONE 4 MG/1 ML VIAL IV SCH (09:00)
[2021-07-23] MEDS: DEXTROSE 5% NACL 0.45% 1,000 ML IV SCH (09:25)
[2021-07-23] MEDS: amLODIPine 10 MG TABLET PO SCH (09:25)
[2021-07-23] MEDS: ASPIRIN CHEW 81 MG TABLET PO SCH (09:25)
[2021-07-23] MEDS: APIXABAN 5 MG TABLET PO SCH ×2 (09:25→21:13)
[2021-07-23] MEDS: MULTIVITAMIN (OCUVITE) TABLET PO SCH (09:25)
[2021-07-23] MEDS: THIAMINE 200 MG/2 ML VIAL IV SCH (09:35)
[2021-07-23] MEDS: FOLIC ACID INJ 1 MG in SYRINGE 1 EACH IV SCH (11:46)
[2021-07-23] MEDS: PANTOPRAZOLE 40 MG VIAL IV SCH (13:42)
[2021-07-23] MEDS: ATORVASTATIN 80 MG TABLET PO SCH (21:13)
[2021-07-24] MEDS: DEXTROSE 5% NACL 0.45% 1,000 ML IV SCH (05:25)
[2021-07-24 05:38] LABS: Basophils % 0.5 % (0.0-0.8); Eosinophils # 0.1 10*3/uL (0.0-0.87); Eosinophils % 1.4 % (0.00-10.9); Hematocrit 43.6 VOL% (42.0-52.0); Hemoglobin 14.5 GM/DL (14.0-18.0); Immature Granulocytes % 0.5 %; Immature Granulocytes Absolute 0.03 #; Lymphocytes # 1.2 10*3/uL (1.4-4.0); Lymphocytes % 20.7 % (21.2-54.2); Mean Corpuscular HGB Conc 33.3 GM/DL (32-36); Mean Corpuscular Volume 96.2 FL (87-102); Neutrophils % 58.9 % (38.7-73.9); Platelet Count 288 T/CUMM (130-400); Red Blood Count 4.53 MC/CUMM (3.8-5.5); Red Cell Distribution Width 14.6 % (9.3-17.3); White Blood Count 5.7 T/CUMM (4-12)
[2021-07-24 05:55] LABS: Calcium 9.1 MG/DL (8.5-10.1); Osmolality,Calculated 278.5 MOS/KG (273-304); Potassium 3.3 MMOL/L (3.5-5.1)
[2021-07-24 07:24] LABS: Eosinophils 2 % (0-10); Lymphocytes 26 % (20-55); Total Cells Counted 100
[2021-07-24 07:25] LABS: Ovalocytes Few; Platelet Estimate Normal; Polychromasia Slight
[2021-07-24] MEDS: THIAMINE 200 MG/2 ML VIAL IV SCH (08:40)
[2021-07-24] MEDS: APIXABAN 5 MG TABLET PO SCH ×2 (08:40→21:07)
[2021-07-24] MEDS: ASPIRIN CHEW 81 MG TABLET PO SCH (08:40)
[2021-07-24] MEDS: MULTIVITAMIN (OCUVITE) TABLET PO SCH (08:40)
[2021-07-24] MEDS: PANTOPRAZOLE 40 MG VIAL IV SCH (08:41)
[2021-07-24] MEDS: FOLIC ACID INJ 1 MG in SYRINGE 1 EACH IV SCH (08:41)
[2021-07-24] MEDS: amLODIPine 10 MG TABLET PO SCH (08:41)
[2021-07-24] MEDS ORDERED: POTASSIUM CHLORIDE 20 MEQ TABLET PO ONE (08:50)
[2021-07-24] MEDS: ATORVASTATIN 80 MG TABLET PO SCH (21:08)
[2021-07-25] MEDS: DEXTROSE 5% NACL 0.45% 1,000 ML IV SCH (00:42)
[2021-07-25 04:54] LABS: Basophils % 0.6 % (0.0-0.8); Eosinophils # 0.1 10*3/uL (0.0-0.87); Eosinophils % 1.1 % (0.00-10.9); Hematocrit 46.2 VOL% (42.0-52.0); Hemoglobin 15.5 GM/DL (14.0-18.0); Immature Granulocytes % 0.5 %; Immature Granulocytes Absolute 0.03 #; Lymphocytes # 0.9 10*3/uL (1.4-4.0); Lymphocytes % 13.7 % (21.2-54.2); Mean Corpuscular HGB Conc 33.5 GM/DL (32-36); Mean Corpuscular Volume 95.7 FL (87-102); Mean Platelet Volume 11.3 FL (9.6-12.0); Monocytes # 1.1 10*3/uL (0.11-0.8); Monocytes % 17.1 % (1.7-12.7); Platelet Count 274 T/CUMM (130-400); Red Blood Count 4.83 MC/CUMM (3.8-5.5); Red Cell Distribution Width 14.2 % (9.3-17.3); White Blood Count 6.6 T/CUMM (4-12)
[2021-07-25 05:18] LABS: Calcium 8.8 MG/DL (8.5-10.1); Osmolality,Calculated 273.7 MOS/KG (273-304); Potassium 3.5 MMOL/L (3.5-5.1)
[2021-07-25 05:19] LABS: Lymphocytes 9 % (20-55); Platelet Estimate Normal; Total Cells Counted 100
[2021-07-25] MEDS: APIXABAN 5 MG TABLET PO SCH (09:20)
[2021-07-25] MEDS: ASPIRIN CHEW 81 MG TABLET PO SCH (09:20)
[2021-07-25] MEDS: amLODIPine 10 MG TABLET PO SCH (09:20)
[2021-07-25] MEDS: MULTIVITAMIN (OCUVITE) TABLET PO SCH (09:20)
[2021-07-25] MEDS: FOLIC ACID INJ 1 MG in SYRINGE 1 EACH IV SCH (10:58)
[2021-07-25] MEDS: THIAMINE 200 MG/2 ML VIAL IV SCH (10:59)
[2021-07-25] MEDS: PANTOPRAZOLE 40 MG VIAL IV SCH (11:01)
[2021-07-25] MEDS: HEPARIN DRIP 25,000 UNITS/500 ML PREMIX IV SCH (20:21)
[2021-07-25] MEDS: ATORVASTATIN 80 MG TABLET PO SCH (20:21)
[2021-07-26 03:16] LABS: Basophils # 0.1 10*3/uL (0.0-0.2); Basophils % 0.6 % (0.0-0.8); Eosinophils # 0.1 10*3/uL (0.0-0.87); Eosinophils % 1.3 % (0.00-10.9); Hemoglobin 15.1 GM/DL (14.0-18.0); Immature Granulocytes % 0.5 %; Immature Granulocytes Absolute 0.05 #; Lymphocytes # 1.5 10*3/uL (1.4-4.0); Lymphocytes % 15.7 % (21.2-54.2); Mean Corpuscular HGB Conc 33.6 GM/DL (32-36); Mean Corpuscular Volume 94.9 FL (87-102); Mean Platelet Volume 11.6 FL (9.6-12.0); Monocytes # 1.7 10*3/uL (0.11-0.8); Monocytes % 18.1 % (1.7-12.7); Neutrophils % 63.8 % (38.7-73.9); Platelet Count 294 T/CUMM (130-400); Red Blood Count 4.74 MC/CUMM (3.8-5.5); Red Cell Distribution Width 14.5 % (9.3-17.3); White Blood Count 9.4 T/CUMM (4-12)
[2021-07-26 03:34] LABS: Calcium 8.5 MG/DL (8.5-10.1); Osmolality,Calculated 274.7 MOS/KG (273-304); Potassium 3.4 MMOL/L (3.5-5.1)
[2021-07-26 03:45] LABS: Eosinophils 4 % (0-10); Lymphocytes 12 % (20-55); Total Cells Counted 100
[2021-07-26 03:46] LABS: Platelet Estimate Adequate
[2021-07-26] MEDS: MULTIVITAMIN (OCUVITE) TABLET PO SCH (09:45)
[2021-07-26] MEDS: amLODIPine 10 MG TABLET PO SCH (09:45)
[2021-07-26] MEDS: ASPIRIN CHEW 81 MG TABLET PO SCH (09:45)
[2021-07-26] MEDS: PANTOPRAZOLE 40 MG VIAL IV SCH (09:46)
[2021-07-26] MEDS: THIAMINE 200 MG/2 ML VIAL IV SCH (09:46)
[2021-07-26] MEDS: FOLIC ACID INJ 1 MG in SYRINGE 1 EACH IV SCH (14:21)
[2021-07-26] MEDS: DEXTROSE 5% NACL 0.45% 1,000 ML IV SCH ×2 (19:07→19:08)
[2021-07-27] MEDS: HEPARIN DRIP 25,000 UNITS/500 ML PREMIX IV SCH ×2 (01:28→23:17)
[2021-07-27] MEDS: ATORVASTATIN 80 MG TABLET PO SCH ×2 (01:29→22:48)
[2021-07-27 02:22] LABS: Basophils # 0.1 10*3/uL (0.0-0.2); Basophils % 0.5 % (0.0-0.8); Eosinophils # 0.2 10*3/uL (0.0-0.87); Eosinophils % 1.4 % (0.00-10.9); Hematocrit 45.5 VOL% (42.0-52.0); Hemoglobin 15.2 GM/DL (14.0-18.0); Immature Granulocytes % 0.5 %; Immature Granulocytes Absolute 0.05 #; Lymphocytes # 1.1 10*3/uL (1.4-4.0); Lymphocytes % 10.8 % (21.2-54.2); Mean Corpuscular HGB Conc 33.4 GM/DL (32-36); Mean Platelet Volume 11.6 FL (9.6-12.0); Monocytes # 1.9 10*3/uL (0.11-0.8); Monocytes % 17.9 % (1.7-12.7); Neutrophils % 68.9 % (38.7-73.9); Platelet Count 276 T/CUMM (130-400); Red Blood Count 4.79 MC/CUMM (3.8-5.5); Red Cell Distribution Width 14.1 % (9.3-17.3); White Blood Count 10.5 T/CUMM (4-12)
[2021-07-27 02:37] LABS: Calcium 8.7 MG/DL (8.5-10.1); Osmolality,Calculated 272.8 MOS/KG (273-304); Potassium 3.4 MMOL/L (3.5-5.1)
[2021-07-27 02:44] LABS: Eosinophils 4 % (0-10); Lymphocytes 11 % (20-55); Platelet Estimate Adequate; Total Cells Counted 100
[2021-07-27] MEDS: THIAMINE 200 MG/2 ML VIAL IV SCH (11:47)
[2021-07-27] MEDS: FOLIC ACID INJ 1 MG in SYRINGE 1 EACH IV SCH (11:47)
[2021-07-27] MEDS: PANTOPRAZOLE 40 MG VIAL IV SCH (11:47)
[2021-07-27] MEDS: ASPIRIN CHEW 81 MG TABLET PO SCH (12:52)
[2021-07-27] MEDS: amLODIPine 10 MG TABLET PO SCH (12:52)
[2021-07-27] MEDS: MULTIVITAMIN (OCUVITE) TABLET PO SCH (12:52)
[2021-07-27] MEDS: DEXTROSE 5% NACL 0.45% 1,000 ML IV SCH (15:05)
[2021-07-28 04:25] LABS: INR 1.2; PT Patient Result 13.1 SECS (10.5-12.0)
[2021-07-28 04:39] LABS: Calcium 8.5 MG/DL (8.5-10.1); Osmolality,Calculated 272.8 MOS/KG (273-304); Phosphorous 3.3 MG/DL (2.5-4.9); Potassium 3.5 MMOL/L (3.5-5.1)
[2021-07-28] MEDS ORDERED: KETAMINE 500 MG/10 ML VIAL ONE (07:21)
[2021-07-28] MEDS: LACTATED RINGERS 1,000 ML IV SCH (08:33)
[2021-07-28] MEDS ORDERED: ETOMIDATE 20 MG/10 ML VIAL IV ONE (08:46)
[2021-07-28] MEDS ORDERED: LIDOCAINE 2% 5 ML VIAL ONE (08:46)
[2021-07-28] MEDS ORDERED: propofoL 200 MG/20 ML VIAL IV ONE (08:46)
[2021-07-28] MEDS: MULTIVITAMIN (OCUVITE) TABLET PO SCH (10:07)
[2021-07-28] MEDS: THIAMINE 200 MG/2 ML VIAL IV SCH (10:07)
[2021-07-28] MEDS: ASPIRIN CHEW 81 MG TABLET PO SCH (10:07)
[2021-07-28] MEDS: FOLIC ACID INJ 1 MG in SYRINGE 1 EACH IV SCH (10:08)
[2021-07-28] MEDS: PANTOPRAZOLE 40 MG VIAL IV SCH (10:08)
[2021-07-28] MEDS: DEXTROSE 5% NACL 0.45% 1,000 ML IV SCH (10:11)
[2021-07-28] MEDS: amLODIPine 10 MG TABLET PO SCH (10:19)
[2021-07-28] MEDS: HEPARIN DRIP 25,000 UNITS/500 ML PREMIX IV SCH ×2 (14:16→18:39)
[2021-07-28] MEDS: ATORVASTATIN 80 MG TABLET PO SCH (21:19)
[2021-07-29] MEDS: DEXTROSE 5% NACL 0.45% 1,000 ML IV SCH ×2 (05:22→08:30)
[2021-07-29] MEDS: amLODIPine 10 MG TABLET PO SCH (10:11)
[2021-07-29] MEDS: APIXABAN 5 MG TABLET PO SCH ×2 (10:11→21:04)
[2021-07-29] MEDS: MULTIVITAMIN (OCUVITE) TABLET PO SCH (10:11)
[2021-07-29] MEDS: ASPIRIN CHEW 81 MG TABLET PO SCH (10:11)
[2021-07-29] MEDS: FOLIC ACID INJ 1 MG in SYRINGE 1 EACH IV SCH (10:12)
[2021-07-29] MEDS: PANTOPRAZOLE 40 MG VIAL IV SCH (10:12)
[2021-07-29] MEDS: THIAMINE 200 MG/2 ML VIAL IV SCH (10:12)
[2021-07-29] MEDS: LACTATED RINGERS 1,000 ML IV SCH (13:37)
[2021-07-29] MEDS: ATORVASTATIN 80 MG TABLET PO SCH (21:04)
[2021-07-30] MEDS: THIAMINE 200 MG/2 ML VIAL IV SCH (09:15)
[2021-07-30] MEDS: PANTOPRAZOLE 40 MG VIAL IV SCH (09:15)
[2021-07-30] MEDS: LACTATED RINGERS 1,000 ML IV SCH (09:17)
[2021-07-30] MEDS: amLODIPine 10 MG TABLET PO SCH (09:17)
[2021-07-30] MEDS: APIXABAN 5 MG TABLET PO SCH ×2 (09:17→22:19)
[2021-07-30] MEDS: ASPIRIN CHEW 81 MG TABLET PO SCH (09:17)
[2021-07-30] MEDS: MULTIVITAMIN (OCUVITE) TABLET PO SCH (09:18)
[2021-07-30] MEDS: DEXTROSE 5% NACL 0.45% 1,000 ML IV SCH ×2 (10:01→22:20)
[2021-07-30] MEDS: FOLIC ACID INJ 1 MG in SYRINGE 1 EACH IV SCH (10:27)
[2021-07-30] MEDS: SERTRALINE 50 MG TABLET PO SCH (22:19)
[2021-07-30] MEDS: ATORVASTATIN 80 MG TABLET PO SCH (22:19)
[2021-07-31 05:23] LABS: Basophils # 0.1 10*3/uL (0.0-0.2); Basophils % 0.4 % (0.0-0.8); Eosinophils # 0.2 10*3/uL (0.0-0.87); Eosinophils % 2.1 % (0.00-10.9); Hematocrit 41.3 VOL% (42.0-52.0); Hemoglobin 13.8 GM/DL (14.0-18.0); Immature Granulocytes % 2.2 %; Immature Granulocytes Absolute 0.25 #; Lymphocytes # 1.2 10*3/uL (1.4-4.0); Lymphocytes % 10.4 % (21.2-54.2); Mean Corpuscular HGB Conc 33.4 GM/DL (32-36); Mean Corpuscular Volume 95.2 FL (87-102); Mean Platelet Volume 12.1 FL (9.6-12.0); Monocytes # 2.6 10*3/uL (0.11-0.8); Monocytes % 23.1 % (1.7-12.7); Neutrophils % 61.8 % (38.7-73.9); Platelet Count 325 T/CUMM (130-400); Red Blood Count 4.34 MC/CUMM (3.8-5.5); Red Cell Distribution Width 13.7 % (9.3-17.3); White Blood Count 11.3 T/CUMM (4-12)
[2021-07-31 05:45] LABS: Calcium 8.6 MG/DL (8.5-10.1); Eosinophils 2 % (0-10); Lymphocytes 9 % (20-55); Osmolality,Calculated 274.7 MOS/KG (273-304); Platelet Estimate Adequate; Potassium 3.2 MMOL/L (3.5-5.1); Total Cells Counted 100
[2021-07-31] MEDS: LACTATED RINGERS 1,000 ML IV SCH (09:26)
[2021-07-31] MEDS: ASPIRIN CHEW 81 MG TABLET PO SCH (10:09)
[2021-07-31] MEDS: FOLIC ACID INJ 1 MG in SYRINGE 1 EACH IV SCH (10:09)
[2021-07-31] MEDS: amLODIPine 10 MG TABLET PO SCH (10:09)
[2021-07-31] MEDS: APIXABAN 5 MG TABLET PO SCH ×2 (10:09→21:44)
[2021-07-31] MEDS: THIAMINE 200 MG/2 ML VIAL IV SCH (10:10)
[2021-07-31] MEDS: MULTIVITAMIN (OCUVITE) TABLET PO SCH (10:10)
[2021-07-31] MEDS: PANTOPRAZOLE 40 MG VIAL IV SCH (10:10)
[2021-07-31] MEDS: DEXTROSE 5% NACL 0.45% 1,000 ML IV SCH ×2 (10:10→17:39)
[2021-07-31] MEDS: SERTRALINE 50 MG TABLET PO SCH (21:44)
[2021-07-31] MEDS: ATORVASTATIN 80 MG TABLET PO SCH (21:44)
[2021-08-01] MEDS: LACTATED RINGERS 1,000 ML IV SCH (08:22)
[2021-08-01] MEDS: MULTIVITAMIN (OCUVITE) TABLET PO SCH (09:39)
[2021-08-01] MEDS: APIXABAN 5 MG TABLET PO SCH ×2 (09:39→21:26)
[2021-08-01] MEDS: ASPIRIN CHEW 81 MG TABLET PO SCH (09:39)
[2021-08-01] MEDS: amLODIPine 10 MG TABLET PO SCH (09:39)
[2021-08-01] MEDS: PANTOPRAZOLE 40 MG VIAL IV SCH (09:45)
[2021-08-01] MEDS: FOLIC ACID INJ 1 MG in SYRINGE 1 EACH IV SCH (09:48)
[2021-08-01] MEDS: THIAMINE 200 MG/2 ML VIAL IV SCH (09:50)
[2021-08-01] MEDS: DEXTROSE 5% NACL 0.45% 1,000 ML IV SCH (19:35)
[2021-08-01] MEDS: SERTRALINE 50 MG TABLET PO SCH (21:26)
[2021-08-01] MEDS: ATORVASTATIN 80 MG TABLET PO SCH (21:27)
[2021-08-02] MEDS: DEXTROSE 5% NACL 0.45% 1,000 ML IV SCH ×2 (03:07→15:54)
[2021-08-02 04:54] LABS: Calcium 8.5 MG/DL (8.5-10.1); Osmolality,Calculated 276.5 MOS/KG (273-304); Phosphorous 3.6 MG/DL (2.5-4.9); Potassium 3.3 MMOL/L (3.5-5.1)
[2021-08-02] MEDS: FOLIC ACID INJ 1 MG in SYRINGE 1 EACH IV SCH (08:28)
[2021-08-02] MEDS: MULTIVITAMIN (OCUVITE) TABLET PO SCH (09:05)
[2021-08-02] MEDS: APIXABAN 5 MG TABLET PO SCH ×2 (09:05→20:53)
[2021-08-02] MEDS: ASPIRIN CHEW 81 MG TABLET PO SCH (09:05)
[2021-08-02] MEDS: amLODIPine 10 MG TABLET PO SCH (09:05)
[2021-08-02] MEDS: PANTOPRAZOLE 40 MG VIAL IV SCH (10:04)
[2021-08-02] MEDS: THIAMINE 200 MG/2 ML VIAL IV SCH (10:07)
[2021-08-02] MEDS ORDERED: POTASSIUM CHLORIDE 20 MEQ TABLET PO ONE (15:48)
[2021-08-02] MEDS: SERTRALINE 50 MG TABLET PO SCH (20:53)
[2021-08-02] MEDS: ATORVASTATIN 80 MG TABLET PO SCH (20:53)
[2021-08-03 05:18] LABS: Basophils # 0.1 10*3/uL (0.0-0.2); Basophils % 0.5 % (0.0-0.8); Eosinophils # 0.3 10*3/uL (0.0-0.87); Eosinophils % 2.3 % (0.00-10.9); Hematocrit 40.8 VOL% (42.0-52.0); Hemoglobin 13.7 GM/DL (14.0-18.0); Immature Granulocytes % 2.2 %; Immature Granulocytes Absolute 0.25 #; Lymphocytes # 1.3 10*3/uL (1.4-4.0); Lymphocytes % 11.7 % (21.2-54.2); Mean Corpuscular HGB Conc 33.6 GM/DL (32-36); Mean Corpuscular Volume 93.8 FL (87-102); Mean Platelet Volume 11.4 FL (9.6-12.0); Monocytes # 2.7 10*3/uL (0.11-0.8); Monocytes % 23.5 % (1.7-12.7); Neutrophils % 59.8 % (38.7-73.9); Platelet Count 361 T/CUMM (130-400); Red Blood Count 4.35 MC/CUMM (3.8-5.5); Red Cell Distribution Width 13.8 % (9.3-17.3); White Blood Count 11.4 T/CUMM (4-12)
[2021-08-03 05:31] LABS: Calcium 8.7 MG/DL (8.5-10.1); Potassium 3.8 MMOL/L (3.5-5.1)
[2021-08-03 05:44] LABS: Eosinophils 5 % (0-10); Lymphocytes 11 % (20-55); Platelet Estimate Adequate; Total Cells Counted 100
[2021-08-03] MEDS: MULTIVITAMIN (OCUVITE) TABLET PO SCH (12:00)
[2021-08-03] MEDS: amLODIPine 10 MG TABLET PO SCH (12:00)
[2021-08-03] MEDS: THIAMINE 200 MG/2 ML VIAL IV SCH (12:01)
[2021-08-03] MEDS: FOLIC ACID INJ 1 MG in SYRINGE 1 EACH IV SCH (12:01)
[2021-08-03] MEDS: APIXABAN 5 MG TABLET PO SCH ×2 (12:01→21:12)
[2021-08-03] MEDS: PANTOPRAZOLE 40 MG VIAL IV SCH (12:01)
[2021-08-03] MEDS: ASPIRIN CHEW 81 MG TABLET PO SCH (12:01)
[2021-08-03] MEDS: ATORVASTATIN 80 MG TABLET PO SCH (21:12)
[2021-08-03] MEDS: SERTRALINE 50 MG TABLET PO SCH (21:12)
[2021-08-04] MEDS: ASPIRIN CHEW 81 MG TABLET PO SCH (10:09)
[2021-08-04] MEDS: APIXABAN 5 MG TABLET PO SCH ×2 (10:09→21:15)
[2021-08-04] MEDS: THIAMINE 200 MG/2 ML VIAL IV SCH (10:09)
[2021-08-04] MEDS: amLODIPine 10 MG TABLET PO SCH (10:09)
[2021-08-04] MEDS: MULTIVITAMIN (OCUVITE) TABLET PO SCH (10:09)
[2021-08-04] MEDS: PANTOPRAZOLE 40 MG VIAL IV SCH (10:10)
[2021-08-04] MEDS: FOLIC ACID INJ 1 MG in SYRINGE 1 EACH IV SCH (10:10)
[2021-08-04] MEDS: SERTRALINE 50 MG TABLET PO SCH (21:15)
[2021-08-04] MEDS: ATORVASTATIN 80 MG TABLET PO SCH (21:15)
[2021-08-05] MEDS: APIXABAN 5 MG TABLET PO SCH ×2 (09:33→20:48)
[2021-08-05] MEDS: ASPIRIN CHEW 81 MG TABLET PO SCH (09:33)
[2021-08-05] MEDS: amLODIPine 10 MG TABLET PO SCH (09:33)
[2021-08-05] MEDS: MULTIVITAMIN (OCUVITE) TABLET PO SCH (09:33)
[2021-08-05] MEDS: FOLIC ACID INJ 1 MG in SYRINGE 1 EACH IV SCH (09:39)
[2021-08-05] MEDS: PANTOPRAZOLE 40 MG VIAL IV SCH (09:41)
[2021-08-05] MEDS: THIAMINE 200 MG/2 ML VIAL IV SCH (09:44)
[2021-08-05] MEDS: SERTRALINE 50 MG TABLET PO SCH (20:48)
[2021-08-05] MEDS: ATORVASTATIN 80 MG TABLET PO SCH (20:48)
[2021-08-06] MEDS: THIAMINE 200 MG/2 ML VIAL IV SCH (09:21)
[2021-08-06] MEDS: PANTOPRAZOLE 40 MG VIAL IV SCH (09:21)
[2021-08-06] MEDS: MULTIVITAMIN (OCUVITE) TABLET PO SCH (09:29)
[2021-08-06] MEDS: APIXABAN 5 MG TABLET PO SCH ×2 (09:33→21:36)
[2021-08-06] MEDS: ASPIRIN CHEW 81 MG TABLET PO SCH (09:34)
[2021-08-06] MEDS: amLODIPine 10 MG TABLET PO SCH (09:34)
[2021-08-06] MEDS: FOLIC ACID INJ 1 MG in SYRINGE 1 EACH IV SCH (10:13)
[2021-08-06] MEDS: ATORVASTATIN 80 MG TABLET PO SCH (21:36)
[2021-08-06] MEDS: SERTRALINE 50 MG TABLET PO SCH (21:36)
[2021-08-07] MEDS: THIAMINE 200 MG/2 ML VIAL IV SCH (08:40)
[2021-08-07] MEDS: PANTOPRAZOLE 40 MG VIAL IV SCH (08:40)
[2021-08-07] MEDS: FOLIC ACID INJ 1 MG in SYRINGE 1 EACH IV SCH (09:46)
[2021-08-07] MEDS: MULTIVITAMIN (OCUVITE) TABLET PO SCH (09:48)
[2021-08-07] MEDS: ASPIRIN CHEW 81 MG TABLET PO SCH (09:48)
[2021-08-07] MEDS: amLODIPine 10 MG TABLET PO SCH (09:49)
[2021-08-07] MEDS: APIXABAN 5 MG TABLET PO SCH ×2 (09:49→21:17)
[2021-08-07] MEDS: ATORVASTATIN 80 MG TABLET PO SCH (21:17)
[2021-08-07] MEDS: SERTRALINE 50 MG TABLET PO SCH (21:17)
[2021-08-08 05:01] LABS: Basophils # 0.1 10*3/uL (0.0-0.2); Basophils % 0.7 % (0.0-0.8); Eosinophils # 0.3 10*3/uL (0.0-0.87); Eosinophils % 3.2 % (0.00-10.9); Hematocrit 42.7 VOL% (42.0-52.0); Hemoglobin 14.3 GM/DL (14.0-18.0); Immature Granulocytes % 1.1 %; Lymphocytes # 1.3 10*3/uL (1.4-4.0); Lymphocytes % 14.5 % (21.2-54.2); Mean Corpuscular HGB Conc 33.5 GM/DL (32-36); Mean Corpuscular Volume 95.1 FL (87-102); Mean Platelet Volume 11.3 FL (9.6-12.0); Monocytes # 1.8 10*3/uL (0.11-0.8); Monocytes % 19.2 % (1.7-12.7); Neutrophils % 61.3 % (38.7-73.9); Platelet Count 410 T/CUMM (130-400); Red Blood Count 4.49 MC/CUMM (3.8-5.5); Red Cell Distribution Width 13.9 % (9.3-17.3); White Blood Count 9.1 T/CUMM (4-12)
[2021-08-08 05:30] LABS: Eosinophils 8 % (0-10); Lymphocytes 12 % (20-55); Platelet Estimate Adequate; Total Cells Counted 100
[2021-08-08] MEDS: ASPIRIN CHEW 81 MG TABLET PO SCH (08:32)
[2021-08-08] MEDS: APIXABAN 5 MG TABLET PO SCH (08:32)
[2021-08-08] MEDS: MULTIVITAMIN (OCUVITE) TABLET PO SCH (08:33)
[2021-08-08] MEDS ORDERED: OMEPRAZOLE ODT 20 MG TABLET PER TUBE SCH (09:00)
[2021-08-08] MEDS ORDERED: amLODIPine 5 MG TABLET PO SCH (09:00)
[2021-08-08] MEDS ORDERED: FOLIC ACID 1 MG TABLET PO SCH (09:00)
[2021-08-08] MEDS ORDERED: THIAMINE 100 MG TABLET PO SCH (09:00)
[2021-08-08 12:08] VITALS: BP 128/73
== END 2021-08-08 14:09 | disposition swing bed (61) | DRG 64 ==
LOC: EDBD → EDUNIT# → N.ED 09:39 → SUATTDRO 11:10 → N.EDINP 11:10 → N.TELEN 16:28
PROVIDERS: ADMIT Family Medicine; ATTEND Internal Medicine
PROC: EGDWPEG (ICD-10-PCS; 2021-07-28 08:05)